=== PATIENT | female | born 1960 | race Caucasian/White ===

== ENCOUNTER 2018-12-31 09:08 | Emergency (ER) | payer MEDICAID ==
[2018-12-31] MEDS: KETOROLAC 15 MG INJ IM (10:37)
[2018-12-31] MEDS: HYDROCODONE/APAP (5/325) TAB PO (10:37)
== END 2018-12-31 11:46 | disposition home or self-care (01) ==
LOC: FTE 11:46
DX: M17.11 Unilateral primary osteoarthritis, right knee (principal)
CPT/HCPCS: 73562; 93971; 96372; 99285-25